=== PATIENT | female | born 1995 | race Caucasian/White ===

== ENCOUNTER 2018-02-23 21:09 | Emergency (ER) | payer OTHER ==
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
[2018-02-24 00:05] LABS: Urine Appearance Cloudy; Urine Blood Negative (Negative); Urine Color Yellow; Urine Ketones Negative (Negative); Urine Protein Negative (Negative); Urine Specific Gravity 1.006 (1.010-1.030); Urine Urobilinogen Negative (Negative)
[2018-02-24 00:17] VITALS: BP 119/74
== END 2018-02-24 00:16 | disposition home or self-care (01) ==
LOC: ED 21:09
DX: S09.90XA Unspecified injury of head, initial encounter (principal); R51 Headache; F17.210 Nicotine dependence, cigarettes, uncomplicated; B37.0 Candidal stomatitis; W22.8XXA Striking against or struck by other objects, initial encounter; Y92.9 Unspecified place or not applicable; Z33.1 Pregnant state, incidental; Z3A.36 36 weeks gestation of pregnancy
CPT/HCPCS: 81003; 81015; 87086; 99282

== ENCOUNTER 2018-03-10 20:46 | Emergency (ER) | payer OTHER ==
--- NOTE | 2018-03-10 23:24 | ED ---
- HPI Summary HPI Summary: 22F at 37 weeks BABS apr 01 presents with contraction today. They have been occurring for the past 4 hours. She denies any nausea vomiting. No pains urination. She states she was diagnosed with STD at the beginning of the and says she has a prescription to take but hasn't taken them yet. She states that the contractions are in her back. She denies any bowel pain. No vaginal discharge. She states she did believe she broke her water a week ago. No fevers. She has never had this pain before. She has not seen an OB since December when she saw [place] in [place]. - History of Current Complaint Chief Complaint: EDOBProblems Stated Complaint: 9 MONTHS PREG/CONTRACTIONS Time Seen by Provider: 03/10/18 21:52 Pain Intensity: 8 - Assessment Hx Now: No - Allergies/Home Medications Allergies/Adverse Reactions: Allergies Allergy/AdvReac Type Severity Reaction Status Date / Time MS Lactose Intolerance (GI) Allergy GI Upset Verified 06/13/16 13:45 [Lactose Intolerance (GI)] MS Pork-derived Products Allergy Difficulty Verified 06/13/16 13:45 [Pork-derived Products] Breathing PMH/Surg Hx/FS Hx/Imm Hx Endocrine/Hematology History: Denies: Hx Anticoagulant Therapy Neurological History: Reports: Hx Seizures - unmedicated Psychiatric History: Reports: Hx Depression, Other Psychiatric Issues/Disorders - self injuring Denies: Hx Eating Disorder Infectious Disease History: No Infectious Disease History: Denies: Hx Clostridium Difficile, Hx Hepatitis, Hx Human Immunodeficiency Virus (HIV), Hx of Known/Suspected MRSA, Hx Shingles, Hx Tuberculosis, Hx Known/ Suspected VRE, Hx Known/Suspected VRSA, History Other Infectious Disease, Traveled Outside the [place] in Last 30 Days - Family History Known Family History: Positive: Respiratory Disease - asthma Negative: Cardiac Disease, Hypertension, Diabetes - Social History Alcohol Use: Weekly Alcohol Amount: weekends Substance Use Type: Reports: None Substance Use Comment - Amount & Last Used: daily; 05/23/16 Smoking Status (MU): Heavy Every Day Tobacco Smoker Type: Cigarettes Amount Used/How Often: 1/2 PPD Length of Time of Smoking/Using Tobacco: 8 years Have You Smoked in the Last Year: Yes Review of Systems Negative: Fever Negative: Chest Pain Negative: Shortness Of Breath Negative: Abdominal Pain, Nausea Positive: other - back pain All Other Systems Reviewed And Are Negative: Yes Physical Exam - Physical Exam Triage Information Reviewed: Yes Vital Signs Reviewed: Yes Appearance: Positive: Well-Appearing Skin: Positive: Warm, Dry Head/Face: Positive: Normal Head/Face Inspection Eyes: Positive: Normal, Conjunctiva Clear ENT: Positive: Pharynx normal Respiratory/Lung Sounds: Positive: Clear to Auscultation, Breath Sounds Present Cardiovascular: Positive: Normal, RRR Abdomen Description: Positive: Nontender, Soft Bowel Sounds: Positive: Present Musculoskeletal: Positive: Normal Neurological: Positive: Normal Psychiatric: Positive: Normal Diagnostics - Vital Signs Vital Signs Temp Pulse Resp BP Pulse Ox 03/10/18 20:50 98.4 F 106 20 129/83 98 - Laboratory Lab Results: Lab Results 03/10/18 Range/Units 22:00 Vag Amniotic Fld Detect Negative Lab Statement: Any lab studies that have been ordered have been reviewed, and results considered in the medical decision making process. - Ultrasound No standard instances Ultrasound Interpretation: Positive (See Comments) - Intrauterine at 35 weeks Ultrasound Interpretation Completed By: Radiologist Course/Dx - Course Course Of Treatment: 22F at 37 weeks BABS apr 01 presents with contraction today. They have been occurring for the past 4 hours. She denies any nausea vomiting. No pains urination. She states she was diagnosed with STD at the beginning of the and says she has a prescription to take but hasn't taken them yet. She states that the contractions are in her back. She denies any bowel pain. No vaginal discharge. She states she did believe she broke her water a week ago. No fevers. She has never had this pain before. She has not seen an OB since December when she saw someone in [place]. On exam patient is control. Nontender abdomen. Baby above his umbilicus. NST was performed and no contraction noted. u/s normal. ROM neg test. Discussed with Dr. Hernadez who saws can send patient home. Told to take antibiotic. Patient understands agrees with plan. patient urine came back after d/c so spoke with patient that sent script for macrobid to pharmacy - Differential Diagnosis/HQI/PQRI: STI/STD, UTI, Other: - contractions - Diagnoses Provider Diagnoses: Uterine contractions during , UTI (urinary tract infection) Discharge - Sign-Out/Discharge Documenting (check all that apply): Patient Departure - Discharge Plan Condition: Good Disposition: HOME Prescriptions: Nitrofurantoin Monohyd/M-Cryst [Macrobid 100 mg Capsule] 100 mg PO BID #14 cap Patient Education Materials: at 35 to 38 Weeks (ED) Referrals: Clint Hernadez MD [Medical Doctor] - Edil Whitehead MD [Medical Doctor] - Additional Instructions: Follow up with ob Take antibiotics as prescribed Return to ED if develop any new or worsening symptoms - Billing Disposition and Condition Condition: GOOD Disposition: Home
[2018-03-11 01:03] LABS: Urine Appearance Cloudy; Urine Blood Negative (Negative); Urine Color Yellow; Urine Ketones Negative (Negative); Urine Protein Negative (Negative); Urine Red Blood Cell Trace(0-2/hpf) (Absent); Urine Urobilinogen Negative (Negative); Urine White Blood Cell 2+(11-20/hpf) (Absent)
[2018-03-11 01:05] VITALS: BP 124/73
--- NOTE | 2018-03-11 08:20 | RAD ---
HISTORY: amniotic fluid level. The gestational age by dates is: 36 weeks, 4 days COMPARISONS: None available at the time of dictation. TECHNIQUE: Multiple transverse and longitudinal ultrasound images were obtained of the gravid uterus using grayscale, color Doppler, and M-mode Doppler imaging. FINDINGS: /PLACENTAL EVALUATION: Number of fetuses: Single Presentation: Cephalic cardiac activity: 155 bpm Gross motion: Observed Placenta position: Anterior Amniotic fluid volume: Normal GREGG: 10.6 cm BIOMETRY: Biparietal diameter: 8.4 cm 34 weeks, 0 days Head circumference: 30.95 cm 34 weeks, 4 days Abdominal circumference: 32.6 cm 36 weeks, 4 days Femur length: 6.9 cm 35 weeks, 2 days HC/AC: 0.95 Estimated weight: 2743 grams, +/- 4 1 grams GESTATIONAL AGE: The composite gestational age is: 35 weeks, 1 day. The BABS is: April 13, 2016. This is concordant with age by dates ANATOMY: cranium: Within normal limits ventricles: Not evaluated choroid plexus: Not evaluated cerebellum: Within normal limits posterior fossa: Within normal limits face/orbits/lips: Not evaluated spine: Not evaluated heart: Normal 4 chamber diaphragm: Not evaluated stomach: Within normal limits kidneys: Within normal limits bladder: Within normal limits cord: Not evaluated CERVIX: The cervix is not well visualized OTHER: None IMPRESSION: 1. SINGLE LIVE INTRAUTERINE GESTATION IN CEPHALIC PRESENTATION AT 35 WEEKS, 1 DAY BY COMPOSITE GESTATIONAL AGE. 2. LIMITED ANATOMY EVALUATION 3. THE AMNIOTIC FLUID INDEX IS 10.6. R0
== END 2018-03-11 01:00 | disposition home or self-care (01) ==
LOC: ED 20:46
DX: O62.9 Abnormality of forces of labor, unspecified (principal); O99.333 Smoking (tobacco) complicating pregnancy, third trimester; F17.210 Nicotine dependence, cigarettes, uncomplicated; Z3A.37 37 weeks gestation of pregnancy; O23.43 Unspecified infection of urinary tract in pregnancy, third trimester
CPT/HCPCS: 36415; 76815; 80307; 81003; 81015; 84112; 87070; 87086; 99284

== ENCOUNTER 2018-03-14 00:58 | Emergency (ER) | payer OTHER ==
--- NOTE | 2018-03-14 01:19 | ED ---
- HPI Summary HPI Summary: The patient is a 22 y/o female presents to the [facility] complaining of contractions spaced 1-2 minutes apart starting tonight. She is due on April [id number] but has not had any care. This is her second visit to [facility] this week, seen on 03/11/18. She denies any fluid leakage. Her GPA is 1/0/0. This is krista Varghese documenting for attending Dr. Salty MD. - History of Current Complaint Chief Complaint: EDOBProblems Stated Complaint: OB PROBLEM Hx Obtained From: Patient Chief Complaint: Pain - Contractions Onset/Duration: Still Present Timing: Lasting Minutes - 1-2 minutes apart Severity: Severe - 9/10 Current Severity: Severe Pain Intensity: 9 Location of Pain: Diffuse Character: Other: - aching Associated Signs and Symptoms: Negative: Vaginal Bleeding or Discharge - Assessment Hx Now: Yes Expected Date of Delivery: 03/24/18 Contraction Frequency: 1-2 minutes apart - Allergies/Home Medications Allergies/Adverse Reactions: Allergies Allergy/AdvReac Type Severity Reaction Status Date / Time MS Lactose Intolerance (GI) Allergy GI Upset Verified 06/13/16 13:45 [Lactose Intolerance (GI)] MS Pork-derived Products Allergy Difficulty Verified 06/13/16 13:45 [Pork-derived Products] Breathing PMH/Surg Hx/FS Hx/Imm Hx Previously Healthy: No Endocrine/Hematology History: Denies: Hx Anticoagulant Therapy Neurological History: Reports: Hx Seizures - unmedicated Psychiatric History: Reports: Hx Depression, Other Psychiatric Issues/Disorders - self injuring Denies: Hx Eating Disorder Infectious Disease History: No Infectious Disease History: Denies: Hx Clostridium Difficile, Hx Hepatitis, Hx Human Immunodeficiency Virus (HIV), Hx of Known/Suspected MRSA, Hx Shingles, Hx Tuberculosis, Hx Known/ Suspected VRE, Hx Known/Suspected VRSA, History Other Infectious Disease, Traveled Outside the [place] in Last 30 Days - Family History Known Family History: Positive: Respiratory Disease - asthma Negative: Cardiac Disease, Hypertension, Diabetes - Social History Occupation: Unemployed Lives: With Family Alcohol Use: Weekly Alcohol Amount: weekends Hx Substance Use: Yes Substance Use Type: Reports: Other Substance Use Comment - Amount & Last Used: daily; 05/23/16 Hx Tobacco Use: Yes Smoking Status (MU): Heavy Every Day Tobacco Smoker Type: Cigarettes Amount Used/How Often: 1/2 PPD Length of Time of Smoking/Using Tobacco: 8 years Have You Smoked in the Last Year: Yes Review of Systems Negative: Fever Positive: pain - contractions, other - . Negative: discharge All Other Systems Reviewed And Are Negative: Yes Physical Exam - Summary Physical Exam Summary: Limited PE due to . Appearance: Well-appearing, Well-nourished, lying in bed comfortable Skin: Warm, dry, no obvious rash Eyes: sclera anicteric, no conjunctival pallor ENT: mucous membranes moist Neck: deferred Respiratory: No signs of respiratory distress Cardiovascular: Appears well perfused, pulses are nml Abdomen: deferred Musculoskeletal: Moving all 4 extremities without obvious discomfort Neurological: Awake and alert, mentation is normal, speech is fluent and appropriate Psychiatric: affect is normal, does not appear anxious or depressed - Physical Exam Triage Information Reviewed: Yes Vital Signs Reviewed: Yes Completion Of Physical Exam Limited Due To: Other - Limited normal PE due to Diagnostics - Vital Signs Vital Signs Temp Pulse Resp BP Pulse Ox 03/14/18 01:00 97.8 F 107 22 129/83 96 - Laboratory Lab Statement: Any lab studies that have been ordered have been reviewed, and results considered in the medical decision making process. Discharge - Discharge Plan Condition: Good Disposition: HOME Patient Education Materials: Early Labor Signs (ED) Referrals: Clint Hernadez MD [Medical Doctor] - Additional Instructions: Please call Dr. Hernadez's office in the morning to arrange for a office visit. You are almost at term and will need some care; it's not to leave even now to get some care done. Consult Consult: Time 02:02 Provider: Clint Hernadez, Obstetrics and Gynecology Provider said that the patient can be discharged and should call his office tomorrow to schedule an appointment
[2018-03-14 02:22] VITALS: BP 137/74
== END 2018-03-14 02:15 | disposition home or self-care (01) ==
LOC: ED 00:58
DX: O60.00 Preterm labor without delivery, unspecified trimester (principal); Z3A.00 Weeks of gestation of pregnancy not specified; Z82.5 Family history of asthma and other chronic lower respiratory diseases; F17.210 Nicotine dependence, cigarettes, uncomplicated
CPT/HCPCS: 99282